=== PATIENT | female | born 1990 | race Caucasian/White ===

== ENCOUNTER 2021-01-04 00:34 | Emergency (ER) | payer OTHER ==
[2021-01-04] MEDS ORDERED: Acetaminophen 500 MG TAB ONE (01:34)
[2021-01-04] MEDS ORDERED: Ibuprofen 200 MG TAB ONE (01:34)
== END 2021-01-04 02:12 | disposition home or self-care (01) ==
LOC: CSHERS 00:34
DX: L73.9 Follicular disorder, unspecified (principal); F17.210 Nicotine dependence, cigarettes, uncomplicated
CPT/HCPCS: 71045

== ENCOUNTER 2021-10-24 12:28 | Emergency (ER) | payer OTHER ==
[2021-10-24] MEDS ORDERED: HYDROcodone/Acetaminophen 5/325 mg Tablet ONE (16:08)
== END 2021-10-24 16:04 | disposition home or self-care (01) ==
LOC: CSHERS 12:28
DX: S62.624A Displaced fracture of middle phalanx of right ring finger, initial encounter for closed fracture (principal); W23.1XXA Caught, crushed, jammed, or pinched between stationary objects, initial encounter

== ENCOUNTER 2022-03-29 15:39 | Emergency (ER) | payer MEDICAID | END 2022-03-29 16:25 | disposition home or self-care (01) | LOC: CSHERS 15:39 | DX: H92.03 Otalgia, bilateral (principal); G89.29 Other chronic pain; J02.9 Acute pharyngitis, unspecified; Z20.822 Contact with and (suspected) exposure to COVID-19; F17.210 Nicotine dependence, cigarettes, uncomplicated | CPT/HCPCS: 99283; U0003; U0005 ==

== ENCOUNTER 2022-04-03 17:22 | Emergency (ER) | payer MEDICAID ==
[2022-04-03] MEDS ORDERED: Acetaminophen 500 MG TAB ONE (18:11)
== END 2022-04-03 19:52 | disposition home or self-care (01) ==
LOC: CSHERS 17:22
DX: S60.222A Contusion of left hand, initial encounter (principal); F17.210 Nicotine dependence, cigarettes, uncomplicated; W18.30XA Fall on same level, unspecified, initial encounter

== ENCOUNTER 2023-04-26 17:45 | Emergency (ER) | payer OTHER | END 2023-04-26 20:42 | disposition home or self-care (01) | LOC: CSHERS 17:45 | DX: S09.90XA Unspecified injury of head, initial encounter (principal); M54.2 Cervicalgia; F17.210 Nicotine dependence, cigarettes, uncomplicated; V89.2XXA Person injured in unspecified motor-vehicle accident, traffic, initial encounter | CPT/HCPCS: 70450; 72125 ==

== ENCOUNTER 2023-11-02 18:59 | Emergency (ER) | payer OTHER, SELFPAY ==
[2023-11-02] MEDS ORDERED: predniSONE 20 MG TAB ONE (21:00)
== END 2023-11-02 21:51 | disposition home or self-care (01) ==
LOC: CSHERS 18:59
DX: R51.9 Headache, unspecified (principal); M54.2 Cervicalgia; F17.210 Nicotine dependence, cigarettes, uncomplicated; Z55.6 Problems related to health literacy; Z75.3 Unavailability and inaccessibility of health-care facilities
CPT/HCPCS: 72040; J7512

== ENCOUNTER 2023-12-26 10:15 | Emergency (ER) | payer OTHER, SELFPAY ==
[2023-12-26] MEDS ORDERED: Ibuprofen 200 MG TAB ONE (11:35)
== END 2023-12-26 11:39 | disposition home or self-care (01) ==
LOC: CSHERS 10:15
DX: S09.90XA Unspecified injury of head, initial encounter (principal); F17.290 Nicotine dependence, other tobacco product, uncomplicated; X58.XXXA Exposure to other specified factors, initial encounter
CPT/HCPCS: 93005; 93010; 99283

== ENCOUNTER 2024-07-21 13:54 | Emergency (ER) | payer OTHER ==
[2024-07-21 17:48] LABS: Bilirubin Neg (Negative); Blood, Urine Negative (Negative); Clarity Clear (Clear); Glucose, Urine (Dipstick) Normal (Negative); Ketone, Urine Negative (Negative); Leukocyte 500 (Negative); Nitrite Negative (Negative); Protein, Urine (Dipstick) Negative (Neg-Trace); Urobilinogen Normal mg/dL (Less than 2)
[2024-07-21 18:18] LABS: Bacteria/HPF 1+ HPF (None Seen); CAUTI Indications for Culture Pelvic or flank pain; RBC/HPF 0-3 HPF (0-3); Squamous Epithelial 0-3 HPF (0-3)
[2024-07-21 18:19] LABS: Mucous/LPF Rare LPF (<2+)
[2024-07-21 18:20] LABS: Urine Culture Reflex No No
[2024-07-21] MEDS ORDERED: Acetaminophen/Codeine 30-300mg Tablet ONE (18:20)
== END 2024-07-21 18:43 | disposition home or self-care (01) ==
LOC: CSHERS 13:54
DX: N39.0 Urinary tract infection, site not specified (principal); N81.10 Cystocele, unspecified; F17.290 Nicotine dependence, other tobacco product, uncomplicated
CPT/HCPCS: 81001; 99284